=== PATIENT | male | born 1955 | race Caucasian/White ===

== ENCOUNTER 2018-07-16 01:56 | Emergency (ER) | payer BC ==
--- NOTE | 2018-07-16 03:30 | ED Physician Documentation ---
History of Present Illness - Stated complaint Stated Complaint: R THUMB PX - Chief complaint Chief Complaint: Ext Problem - History obtained from History obtained from: Patient - History of Present Illness Timing: Other (see narrative below) Pain level now: 6 Improved by: nothing Worsened by: palpation - Additonal information Additional information: patient sustained puncture to right thumb on 07/02/18 due to blackberry hardwick thorn. Since earlier this week, he experienced increasing pain, swelling, erythema of the right thumb at the puncture site. He was evaluated at [facility] 2 days ago for this and an I+D was performed, packing placed, culture taken. No antibiotic was prescribed, and recommendation was to return in 3 days for recheck of the wound. He had significant symptomatic relief after the procedure until this evening when he developed worsening of the pain and swell ing and thus comes to ED for evaluation. Patient is right-hand dominant Review of Systems Constitutional: denies: Fever Skin: reports: Other (puncture to right thumb earlier this month with recent associated infection) Musculoskeletal: reports: Extremity pain (predominantly right thumb, but tonight has sensation of pain traveling to wrist and FA), Extremity swelling (limited to right thumb) Neurologic: denies: Focal weakness, Numbness PD PAST MEDICAL HISTORY - Past Medical History Past Medical History: Yes Cardiovascular: High cholesterol Endocrine/Autoimmune: HyPOthyroidism : Kidney stones - Past Surgical History Past Surgical History: Yes HEENT: Tonsil/Adenoidectomy - Present Medications Home Medications: Ambulatory Orders Medication Instructions Recorded Confirmed Amox/Clav 875/125 [Augmentin] 1 each PO Q12H #14 tablet 07/16/18 oxyCODONE [Roxicodone] 5 - 10 mg PO Q6H PRN #14 tablet 07/16/18 - Allergies Allergies/Adverse Reactions: Allergies Allergy/AdvReac Type Severity Reaction Status Date / Time No Known Drug Allergies Allergy Verified 07/16/18 02:01 - Social History Does the pt smoke?: No Smoking Status: Never smoker Does the pt drink ETOH?: Yes Does the pt have substance abuse?: No - Immunizations Immunizations are current?: Yes PD ED PE NORMAL - Vitals Vital signs reviewed: Yes - General General: Alert and oriented X 3, No acute distress, Well developed/nourished - Neuro Neuro: No motor deficit, No sensory deficit PD ED PE EXPANDED - Extremities Extremities: Other KELLY UE/Hands Visual: 1 - rash (erythema), swelling, tenderness Results - Vitals Vitals: Oxygen O2 Source Room air PD MEDICAL DECISION MAKING - ED course Complexity details: considered differential, d/w patient ED course: swelling, erythema, tenderness that is limited to tip of right thumb. there is packing in place but it is dry, there is no active drainage, and there is small area of discoloration under the skin at packing site suggestive of purulence. Wi th gentle traction, the packing dislodged (there was clearly initial resistance, as there was dried clotted material that was keeping the packing anchored in place and preventing drainage). There was only approximately 0.5 cm of packing that was in the wound itself (below the surface of the skin), and there was immediate release of pus with removal of the packing. This also resulted in improvement in pain level. Gentle pressure applied and no further pus expressed, no fluctuance encountered. antibiotic given and prescribed, patient instructed to contact the [facility] to ask if the culture is available and to inquire as to whether the prescribed antibiotic is appropriate according to culture results. Patient encouraged to return if worse, and to f/u with his PMD within 2-3 days for recheck of the infection. Departure - Departure Disposition: 01 Home, Self Care Clinical Impression: Infection of thumb Condition: Good Instructions: ED Staph Infec Abx Tx Only Prescriptions: Amox/Clav 875/125 [Augmentin] 1 each PO Q12H #14 tablet oxyCODONE [Roxicodone] 5 - 10 mg PO Q6H PRN #14 tablet PRN Reason: Pain Comments: Follow up with your primary care doctor in 3-5 days Discharge Date/Time: 07/16/18 05:01
[2018-07-16] MEDS ORDERED: oxyCODONE/ACET 5/325 Prepack 4 PO STA (04:02)
[2018-07-16] MEDS ORDERED: AMOX/CLAV 875 MG/125 MG TABLET PO STA (04:02)
[2018-07-16 04:12] VITALS: BP 130/96
== END 2018-07-16 05:01 | disposition home or self-care (01) ==
LOC: ED 01:56
DX: L08.9 Local infection of the skin and subcutaneous tissue, unspecified (principal)
CPT/HCPCS: 99283; A9270

== ENCOUNTER 2021-03-21 08:00 | Outpatient (CLI) | payer BC ==
[2021-03-21 15:30] LABS: ALBUMIN 4.2 g/dL (3.2-5.5); ALBUMIN/GLOBULIN RATIO 1.6 (1.0-2.2); BILIRUBIN,TOTAL 1.2 mg/dL (0.2-1.0); CALCIUM 8.9 mg/dL (8.5-10.3); CRP - C-REACTIVE PROTEIN 7.6 mg/dL (0-1.0); POTASSIUM 3.8 mmol/L (3.5-5.0); TOTAL PROTEIN 6.9 g/dL (6.7-8.2)
[2021-03-21 15:42] LABS: BASOPHILS % (AUTO) 0.3 %; EOSINOPHILS % (AUTO) 0.1 %; HCT - HEMATOCRIT 41.1 % (42.0-52.0); HGB - HEMOGLOBIN 13.9 g/dL (14.0-18.0); LYMPHOCYTES % (AUTO) 5.7 %; MEAN CORPUSCULAR HEMOGLOBIN 28.8 pg (27.0-31.0); MEAN CORPUSCULAR HGB CONC 33.8 g/dL (32.0-36.0); MEAN CORPUSCULAR VOLUME 85.3 fL (80.0-94.0); MEAN PLATELET VOLUME 11.1 fL (7.4-11.4); MONOCYTES % (AUTO) 8.2 %; NEUTROPHILS % (AUTO) 84.9 %; PLT - PLATELET COUNT 166 10^3/uL (130-450); RED BLOOD COUNT 4.82 10^6/uL (4.70-6.10); RED CELL DISTRIBUTION WIDTH 13.1 % (12.0-15.0); WHITE BLOOD COUNT 19.2 x10^3/uL (4.8-10.8)
[2021-03-21 15:44] LABS: SLIDE REVIEW? Indicated
[2021-03-21 15:48] LABS: BILIRUBIN,URINE NEGATIVE (NEGATIVE); GLUCOSE, URINE (UA) NEGATIVE (NEGATIVE); KETONES,URINE (UA) 15 mg/dL (NEGATIVE); LEUKOCYTE ESTERASE, URINE SMALL (NEGATIVE); NITRITE,URINE POSITIVE (NEGATIVE); OCCULT BLOOD,URINE MODERATE (NEGATIVE); PROTEIN,URINE NEGATIVE (NEGATIVE); UROBILINOGEN,URINE 0.2 (NORMAL) E.U./dL (NORMAL)
[2021-03-21 16:12] LABS: CLARITY,URINE CLOUDY (CLEAR)
[2021-03-21 16:14] LABS: AMORPHOUS SEDIMENT,UR Few /LPF; BACTERIA,URINE Many /HPF (None Seen); RBC,URINE 0-5 /HPF (0-5); SQUAMOUS EPITHELIAL CELL,UR RARE Squamous (<= Few); WBC,URINE >25 /HPF (0-3)
[2021-03-21 16:59] LABS: ABNORMAL LYMPHS % (MANUAL) 0 %; BAND NEUTROPHILS % (MANUAL) 11 %; DIFFERENTIAL COMMENT MANUAL DIFFERENTIAL; LYMPHOCYTES # (MANUAL) 1.2 10^3/uL (1.5-3.5); LYMPHOCYTES % (MANUAL) 5 %; MONOCYTES # (MANUAL) 0.6 10^3/uL (0.0-1.0); NEUTROPHILS # (MANUAL) 17.5 10^3/uL (1.5-6.6); PLATELET ESTIMATE, MANUAL NORMAL (130-450,000) (NORMAL); PLATELET MORPHOLOGY NORMAL APPEARANCE (NORMAL); RBC MORPHOLOGY (MULTIPLE) NORMAL APPEARANCE (NORMAL); REACTIVE LYMPHS % (MANUAL) 1 %
== END 2021-03-21 23:59 | disposition home or self-care (01) ==
LOC: LAB.S 08:00
PROVIDERS: ATTEND Physician Assistant Medical
DX: R50.9 Fever, unspecified (principal); R30.0 Dysuria; Z87.438 Personal history of other diseases of male genital organs
CPT/HCPCS: 36415; 80053; 81001; 84153; 85025; 85651; 86140; 87086; 87181